=== PATIENT | male | born 1985 | race Hispanic/Latino ===

== ENCOUNTER 2020-10-25 12:00 | Emergency (ER) | payer OTHER ==
[~2020-10-25] VITALS: Ht 175.3 cm; Wt 130.2 kg
[2020-10-25] MEDS ORDERED: SODIUM CHLORIDE 0.9% 1000ML 1,000 ML IV STA (12:07)
[2020-10-25] MEDS ORDERED: KETOROLAC TROMETHAMINE 30 MG/ML VIAL IV ONE (12:15)
[2020-10-25] MEDS ORDERED: ONDANSETRON HCL INJ 2MG/ML 2ML 2 MG/ML VIAL IV ONE (12:15)
[2020-10-25] MEDS ORDERED: FAMOTIDINE 20 MG/2 ML VIAL IV ONE ×2 (12:15→12:26)
[2020-10-25] MEDS ORDERED: SODIUM CHLORIDE 0.9% 1000ML 1,000 ML ONE (12:25)
[2020-10-25] MEDS ORDERED: KETOROLAC TROMETHAMINE 30 MG/ML VIAL ONE (12:26)
[2020-10-25] MEDS ORDERED: ONDANSETRON HCL INJ 2MG/ML 2ML 2 MG/ML VIAL ONE (12:26)
[2020-10-25] MEDS ORDERED: SODIUM CHLORIDE 0.9% 50ML 50 ML ONE ×2 (12:27→12:52)
[2020-10-25] MEDS ORDERED: IOPAMIDOL 370 MG/ML 200 ML INFUS..BTL INJ ONE (12:27)
[2020-10-25] MEDS ORDERED: MORPHINE SULFATE INJ 4 MG/ML INJ 1ML ONE (12:51)
[2020-10-25] MEDS ORDERED: PROMETHAZINE HCL (IM) 25 MG/ML VIAL IM ONE (12:51)
[2020-10-25] MEDS ORDERED: MORPHINE SULFATE 5 MG/ML VIAL IV ONE (13:00)
[2020-10-25] MEDS ORDERED: PROMETHAZINE 25MG/ NS 50ML (IV) IV ONE (13:00)
[2020-10-25] MEDS ORDERED: OMEPRAZOLE40 MG PO (13:20)
[2020-10-25] MEDS ORDERED: ULTRAM 50MG50 MG PO (13:20)
[2020-10-25] MEDS ORDERED: ONDANSETRON ODT4 MG PO (13:20)
[2020-10-25] MEDS ORDERED: MAALOX MAXIMUM355 ML PO (13:20)
== END 2020-10-25 13:45 | disposition home or self-care (01) ==
LOC: FSED 12:10
DX: R10.12 Left upper quadrant pain (principal); R11.2 Nausea with vomiting, unspecified; K52.9 Noninfective gastroenteritis and colitis, unspecified
CPT/HCPCS: 74177; 99284; J1885; J2270; J2405; J2550; J7030; Q9967